=== PATIENT | female | born 1990 | race Two or more races ===

== ENCOUNTER 2016-06-25 11:01 | Emergency (ER) | payer OTHER ==
--- NOTE | 2016-06-25 11:14 | ED Physician Chart ---
Chief Complaint/HPI - Patient Information Date Seen:: 06/25/16 Time Seen:: 11:05 Chief Complaint:: Burn on chest this morning. History of Present Illness:: Pt sustained burn on chest with hot coffee at work just before 11 am today when the coffee glass container broke. No other bodily injury or pain. Last tetanus immunization 01/2016. Allergies:: Allergies Allergy/AdvReac Type Severity Reaction Status Date / Time MDX No Known Allergies - Nka Allergy Verified 10/11/13 14:39 [No Known Allergies - Nka] Vitals:: see Nurse Note. Historian:: Patient Family MD/PCP:: Dr. Dwyer. LMP:: 06/06/16 Review:: Nurse's Note Reviewed Review of Systems - Review of Systems General/Constitutional: No fever, No chills, No weight loss, No weakness, No diaphoresis, No edema, No loss of appetite Skin: No bruising, Other (Burn in chest) Head: No headache, No light-headedness Eyes: No loss of vision, No pain, No diplopia ENT: No earache, No nasal drainage, No sore throat, No tinnitus Neck: No neck pain, No swelling, No thyromegaly, No stiffness, No mass noted Cardio Vascular: No chest pain, No palpitations, No PND, No orthopnea, No edema Pulmonary: No SOB, No cough, No sputum, No wheezing GI: No nausea, No vomiting, No diarrhea, No pain, No melena, No hematochezia, No constipation, No hematemesis G/U: No dysuria, No frequency, No hematuria Musculoskeletal: No bone or joint pain, No back pain, No muscle pain Endocrine: No polyuria, No polydipsia Psychiatric: No prior psych history Hematopoietic: No bruising, No lymphadenopathy Allergic/Immuno: No urticaria, No angioedema Neurological: No syncope, No focal symptoms, No weakness, No paresthesia, No headache, No seizure, No dizziness, No confusion, No vertigo Past Medical History - Past Medical History Past Medical History: No significant medical hx Family History: Diabetes Melitus (mother) Social History: Non Smoker, No Alcohol, No Drug Use, Single, Employed, Other ( lives with her sister.) Employment:: oil derrick operator Surgical History: Cholecystectomy () Psychiatricy History: None Medication: Reviewed Family Medical History - Family Member Mother History Unknown: Yes Physical Exam - Physical Examination General/Constitutional: Awake, Well-developed, well-nourished, Alert, No distress, GCS 15, Non-toxic appearing, Ambulatory Other Gen/Cons comments:: Breathes comfortably, speaks clearly, and ambulates without difficulty. Head: Atraumatic Eyes: Lids, conjuctiva normal, PERRL, EOMI Skin: No ecchymosis, Well hydrated, No lymphadenopathy Other Skin comments:: Chest exam performed in the presence of female nurse Elva. There is erythema noticed in anterior aspect R breast with minimal blistering at lower portion. There is minimal erythema noticed in midsternal and anteroinferior aspect of L breast. No open wound or significant swelling. No exudate. ENMT: External ears, nose nl, Nasal exam nl, Lips, teeth, gums nl, Oropharynx nl , Tonsils nl Neck: Nontender, Full ROM w/o pain, No nuchal rigidity, No mass, No stridor Respiratory: Nl effort/Exclusion, Clear to Auscultation, No Wheeze/Rhonchi/Rales Cardio Vascular: RRR, No murmur, gallop, rubs, NL S1 S2 GI: No tenderness/rebounding/guarding, No organomegaly, No hernia, Normal BS's, Nondistended, No mass/bruits, No McBurney tenderness Other GI comments:: Abdomen is soft. Extremities: No tenderness or effusion, Full ROM, normal strength in all extremities, No edema, Normal digits & nails Neuro/Psych: Alert/oriented (oriented x 3), Judgement/insight normal, Mood normal, Normal gait, No focal deficits ED Septic Shock - . Is Septic Shock (SBP<90, OR Lactate>4 mmol\L) present?: No Reassessment (Disposition) - Reassessment Reassessment:: 1245 Pt feels much better. Pt requests to go home now and does not want further observation/management in hospital. Aftercare instructions given. Reassessment Condition:: Improved - Diagnosis Diagnosis:: First and second degree burn to chest, stable. - Aftercare/Follow up Instructions Aftercare/Follow-Up Instructions:: Refer to Discharge Instructions Notes:: Keep sterile dressing with silvadene cream on chest clean and dry. May take Motrin 200 mg tab 4 tabs po q8h prn pain. Wound care instructions given. F/U with [facility] in one day for recheck and dressing change. Return to ER immediately if condition worsens or if any further questions/problems. Doctor's First Report of Occupational Injury or Illness has been completed and filed. Medication Prescribed:: None - Patient Disposition Discharge/Transfer:: Home Time:: 12:50 Condition at Disposition:: Stable, Improved
== END 2016-06-25 12:45 | disposition home or self-care (01) ==
LOC: ER 11:01
DX: T21.21XA Burn of second degree of chest wall, initial encounter (principal); Z90.49 Acquired absence of other specified parts of digestive tract; X08.8XXA Exposure to other specified smoke, fire and flames, initial encounter; Y93.89 Activity, other specified; Y92.89 Other specified places as the place of occurrence of the external cause; Y99.8 Other external cause status
CPT/HCPCS: A4217; Z7502